=== PATIENT | male | born 1970 | race Caucasian/White ===

== ENCOUNTER 2018-05-25 19:11 | Emergency (ER) | payer SELFPAY ==
[~2018-05-25] VITALS: Ht 182.9 cm; Wt 116.0 kg
[2018-05-25 22:06] LABS: BASOPHILS % 0.6 % (0.0-2.0); EOSINOPHILS % 1.2 % (0.0-5.0); HEMATOCRIT. 44.6 % (42.0-52.0); HEMOGLOBIN. 15.5 g/dL (14.0-18.0); LYMPHOCYTES % 29.3 % (20.0-50.0); MEAN CORPUSCULAR HEMOGLOBIN 30.9 pg (28.0-32.0); MEAN CORPUSCULAR VOLUME 89.2 fL (80.0-94.0); MEAN PLATELET VOLUME 7.9 fl (7.4-10.4); MONOCYTES % 7.9 % (2.0-8.0); PLATELET 309 x1000/uL (130-400); RED CELL DISTRIBUTION WIDTH 13.7 % (11.6-14.6)
[2018-05-25 22:11] LABS: CHLORIDE 105 mEq/L (98-107)
[2018-05-25 22:18] LABS: ETHANOL BLOOD < 10 mg/dL
[2018-05-25 23:34] LABS: CLARITY URINE CLEAR (CLEAR); COLOR URINE YELLOW (YELLOW); KETONES URINE 1+ (NEGATIVE); LEUKOCYTE ESTERASE URINE NEGATIVE (NEGATIVE); NITRITE URINE NEGATIVE (NEGATIVE); OCCULT BLOOD URINE NEGATIVE (NEGATIVE); PROTEIN URINE 1+ (NEGATIVE); SPECIFIC GRAVITY URINE 1.021 (1.005-1.030); UROBILINOGEN URINE 0.2 E.U./dL (0.2-1.0)
[2018-05-25 23:45] LABS: *AMPHETAMINES SCREEN URINE PRESUMTIVE POSITIVE (NEGATIVE); *BARBITURATES SCREEN URINE NEGATIVE (NEGATIVE); *BENZODIAZEPINES SCREEN URINE NEGATIVE (NEGATIVE); *COCAINE SCREEN URINE NEGATIVE (NEGATIVE); METHADONE URINE SCREEN NEGATIVE (NEGATIVE)
[2018-05-25 23:46] LABS: CANNABINOID URINE SCREEN PRESUMTIVE POSITIVE (NEGATIVE); OPIATES URINE SCREEN NEGATIVE (NEGATIVE); PHENCYCLIDINE URINE SCREEN NEGATIVE (NEGATIVE)
[2018-05-26] MEDS ORDERED: CEPHALEXIN 500MG CAPSULE PO ONE (00:45)
[2018-05-26 11:05] VITALS: BP 121/68
== END 2018-05-26 11:05 | disposition home or self-care (01) ==
LOC: ER 21:45
DX: F15.188 Other stimulant abuse with other stimulant-induced disorder (principal); R45.850 Homicidal ideations; F12.10 Cannabis abuse, uncomplicated; F16.10 Hallucinogen abuse, uncomplicated; R10.11 Right upper quadrant pain; R11.0 Nausea; Z71.51 Drug abuse counseling and surveillance of drug abuser
CPT/HCPCS: 36415; 80053; 80305; 80307; 80329; 81003; 85025; 99284; G0482; J7030; Z7610

== ENCOUNTER 2019-01-24 16:15 | Emergency (ER) | payer SELFPAY ==
[~2019-01-24] VITALS: Ht 182.9 cm; Wt 86.0 kg
[2019-01-24] MEDS ORDERED: IBUPROFEN 400MG TABLET PO ONE (18:00)
[2019-01-24 18:15] VITALS: BP 118/75
== END 2019-01-24 18:15 | disposition home or self-care (01) ==
LOC: ER 16:15
DX: R20.8 Other disturbances of skin sensation (principal); E11.9 Type 2 diabetes mellitus without complications; F99 Mental disorder, not otherwise specified; F31.9 Bipolar disorder, unspecified; F20.9 Schizophrenia, unspecified; F22 Delusional disorders
CPT/HCPCS: 82962; 99283

== ENCOUNTER 2019-02-01 15:43 | Emergency (ER) | payer SELFPAY ==
[~2019-02-01] VITALS: Ht 177.8 cm; Wt 82.0 kg
[2019-02-01 15:47] VITALS: BP 114/72
== END 2019-02-01 16:56 | disposition home or self-care (01) ==
LOC: ER 15:43
DX: B86 Scabies (principal); L53.9 Erythematous condition, unspecified; E11.9 Type 2 diabetes mellitus without complications; I10 Essential (primary) hypertension; F20.9 Schizophrenia, unspecified; F15.10 Other stimulant abuse, uncomplicated
CPT/HCPCS: 99283